=== PATIENT | female | born 1940 | race Caucasian/White ===

== ENCOUNTER 2020-11-15 22:49 | Inpatient (IN) | payer OTHER ==
[~2020-11-15] VITALS: Ht 154.9 cm; Wt 57.6 kg
[~2020-11-15 22:49] MED LIST: CIPRO500 MG PO; LEVOXYL88 MCG PO; MIDRIN CAPSULE1 CAP PO; NEURONTIN300 MG PO; NORFLEX30 MG/ML IJ; NORTUSS-D.E. S118 ML PO; PLAVIX75 MG; SIMVASTATIN20 MG PO; SYNTHROID100 MCG PO; TORADOL60 MG IM; ZITHROMAX600 MG PO
== END 2020-11-20 18:55 | disposition home or self-care (01) | DRG 390 ==
LOC: ER 22:49 → MEDJ 11-16 16:00
PROVIDERS: ADMIT Internal Medicine; ATTEND Internal Medicine
PROC: 0D9770Z Drainage of Stomach, Pylorus with Drainage Device, Via Natural or Artificial Opening (ICD-10-PCS; principal; 2020-11-16)
DX: K56.690 Other partial intestinal obstruction (principal); Z79.01 Long term (current) use of anticoagulants; Z86.73 Personal history of transient ischemic attack (TIA), and cerebral infarction without residual deficits; Z20.828 Contact with and (suspected) exposure to other viral communicable diseases

== ENCOUNTER → 2022-08-10 | Emergency (ER) | payer OTHER ==
[~2022-08-10] VITALS: Ht 121.9 cm; Wt 61.2 kg
[~2022-08-10] MED LIST changes: +ALENDRONATE SOD70 MG PO; +AMITRIPTYLINE H25 MG PO; +CETIRIZINE HCL10 MG PO; +FAMOTIDINE40 MG PO; +MEMANTINE HCL10 MG PO; +METHYLPREDNISOLO4 M1 PO; +MONTELUKAST SOD10 MG PO; +NORFLEX100MG PO
== END | disposition home or self-care (01) ==
LOC: ER 23:24
DX: R07.89 Other chest pain (principal); I10 Essential (primary) hypertension; Z20.822 Contact with and (suspected) exposure to COVID-19; Z88.8 Allergy status to other drugs, medicaments and biological substances

== ENCOUNTER 2023-12-19 21:30 | Emergency (ER) | payer OTHER ==
[~2023-12-19] VITALS: Ht 152.4 cm; Wt 59.0 kg
[2023-12-19 23:13] LABS: URINE APPEARANCE Clear; URINE BILIRRUBIN Negative (NEGATIVE); URINE BLOOD Trace; URINE COLOR Yellow; URINE GLUCOSE Negative (NEGATIVE); URINE LEUKOCYTE Moderate; URINE NITRATE Negative; URINE PROTEIN Negative (NEGATIVE); URINE UROBILINOGEN 0.2 E.U./dl
[2023-12-19 23:16] LABS: HEMATOCRIT 38.4 % (36.0-45.00); HEMOGLOBIN 13.1 g/dL (12.0-15.00); MEAN CELL VOLUME 91.1 fL (80.00-100.00); PLATELET COUNT 234 K/uL (150-450); RED BLOOD COUNT 4.22 M/uL (4.00-6.00); RED CELL DISTRIBUTION WIDTH 13.2 % (11.5-14.5)
[2023-12-19 23:17] LABS: URINE BACTERIA 118.4 uL (0.0-1933); URINE EPITHELIAL CELLS 2.4 uL (0.0-38.8); URINE RBC 18.5 uL (0.0-20.8); URINE WBC 905.1 uL (0.0-23.2)
[2023-12-19 23:44] LABS: ALBUMIN 3.3 gm/dL (3.4-5.0); BILIRUBIN TOTAL 0.44 mg/dL (0.3-1.2); CALCIUM 8.9 mg/dL (8.5-10.1); CREATININE SERUM 0.7 mg/dL (0.55-1.02); GFR 80.31; GLOBULINA 3.3 G/DL (2.4-3.5); POTASSIUM 3.52 mEq/L (3.5-5.1); TOTAL PROTEIN 6.6 gm/dL (6.4-8.2)
== END 2023-12-20 05:05 | disposition home or self-care (01) ==
LOC: ER 21:30
PROVIDERS: General Practice
DX: R10.9 Unspecified abdominal pain (principal); Z91.041 Radiographic dye allergy status; Z88.8 Allergy status to other drugs, medicaments and biological substances; R14.3 Flatulence; R14.2 Eructation; K57.30 Diverticulosis of large intestine without perforation or abscess without bleeding
CPT/HCPCS: 36415; 74176; 96365; 96366; 99284; J7030

== ENCOUNTER 2025-06-26 22:56 | Inpatient (IN) | payer OTHER ==
[~2025-06-26] VITALS: Ht 149.9 cm; Wt 56.7 kg
--- NOTE | 2025-06-26 23:07 | NUR ---
PACIENTE ALERTA Y ORIENTADA X 3. REFIERE DESDE LA 5:30 PM DOLOR ABDOMINALM E INFLAMACION.
[2025-06-26] MEDS ORDERED: NORVASC2.5 M1 PO (23:12)
[2025-06-27] MEDS ORDERED: PROMETHAZINE HCL 50 MG/ML AMPUL IM ONE (00:15)
[2025-06-27] MEDS ORDERED: FAMOTIDINE/PF 20 MG/2 ML VIAL IV PUSH STA (00:15)
[2025-06-27] MEDS ORDERED: 0.9 % SODIUM CHLORIDE 1,000 ML IV ONE (00:30)
--- NOTE | 2025-06-27 00:48 | NUR ---
SE REALIZA LAB Y SE ADMINISTRA TX AISHA ORDEN MEDICA BAJO MEDIDAS ASEPTICAS. SE ORIENTA PTE QUIEN REFIERE ENTENDER Y ACEPTAR.
--- NOTE | 2025-06-27 00:49 | NUR ---
SE REALIZA LAB Y SE ADMINISTRA TX AISHA ORDEN MEDICA BAJO MEDIDAS ASEPTICAS. SE ORIENTA PTE QUIEN REFIERE ENTENDER Y ACEPTAR
[2025-06-27 00:52] LABS: BASO % 0.4 % (0.1-1.2); EOS # 0.08 (0.04-0.54); EOS % 0.8 % (0.7-7.0); LYMPH # 1.70 (1.18-3.74); LYMPH % 17.4 % (19.3-53.1); MEAN PLATELET VOLUME 9.40 fl (9.4-12.4); MONO # 0.63 (0.24-0.82); MONO % 6.4 % (4.7-12.5); NEUT # 7.29 (1.56-6.13); NEUT % 74.7 % (34.0-71.1); RED CELL DISTRIBUTION WIDTH 12.7 % (11.6-14.4)
[2025-06-27 01:35] LABS: INR 1.0
[2025-06-27 01:54] LABS: URINE APPEARANCE Clear; URINE BILIRRUBIN Negative (NEGATIVE); URINE BLOOD Moderate; URINE COLOR Yellow; URINE GLUCOSE Negative (NEGATIVE); URINE LEUKOCYTE Moderate; URINE NITRATE Negative; URINE PROTEIN Negative (NEGATIVE); URINE UROBILINOGEN 0.2 E.U./dl
[2025-06-27 01:55] LABS: URINE BACTERIA 43.1 uL (0.0-1933); URINE EPITHELIAL CELLS 4.6 uL (0.0-38.8); URINE RBC 115.5 uL (0.0-20.8); URINE WBC 33.2 uL (0.0-23.2)
[2025-06-27 02:06] LABS: URINE CAST 0.00 uL (0.0-1.40); URINE KETONE 40 (NEGATIVE)
[2025-06-27 02:14] LABS: ALT/SGPT 24.0 U/L (12-78); AST/SGOT 20.0 U/L (15-37); BILIRUBIN TOTAL 0.57 mg/dL (0.3-1.2); BILIRUBIN,CONJUGATED 0.12 mg/dL (0.0-0.2); BUN CREA RATIO 27.0 (7.0-25.0); CREATININE SERUM 0.75 mg/dL (0.55-1.02); GFR 73.8; GLOBULINA 2.7 G/DL (2.4-3.5); GLUCOSE FASTING 90.0 mg/dL (65-100); OSMOLALITY SERUM 285.0 MOSM/KG (275-295)
--- NOTE | 2025-06-27 06:48 | NUR ---
SE INSERTA NASOGASTRICO EN ORIFICIO IZQ DE LA NARIZ. AL MOMENTO PTE SE ENCUENTRA ALERTA Y ORIENTADA X3. SE MANTIENE BAJO OBSERVACION POR CAMBIO.
--- NOTE | 2025-06-27 07:00 | NUR ---
SE RECIBE PTE DEL TURNO ANTERIOR ALERTA Y ORIENTADA X3, EN ANLGE CON BARANDAS ELEVADAS Y POSICION MAS BAJA POR PRECAUCION. CONSULTADA CON DR.RODRIGUEZ MARTINEZ Y POR PARTIAL SMALL BOWELL OBSTRUCTION. AL MOMENTO CON NGT TO LIS EN FOSA NASAL IZQ, [place] POR TURNO ANTERIOR, EL MISMO SE ENCUENTRA PATENTE Y FIJADO. SE GALO SV Y SE DOCUMENTAN.
[2025-06-27] MEDS ORDERED: HYOSCYAMINE SULFATE 0.125 MG TAB.SUBL SL STA (07:43)
[2025-06-27] MEDS ORDERED: METRONIDAZOLE/SODIUM CHLORIDE 500 MG/100 ML PIGGYBACK IV ONE (16:15)
[2025-06-27] MEDS ORDERED: KETOROLAC TROMETHAMINE 30 MG VIAL IV ONE (16:15)
[2025-06-27] MEDS ORDERED: CIPROFLOXACIN IN 5 % DEXTROSE 400 MG/200 ML PIGGYBAG IV ONE (16:15)
[2025-06-27] MEDS ORDERED: 0.9 % SODIUM CHLORIDE 1,000 ML IV SCH (17:45)
[2025-06-27] MEDS ORDERED: ONDANSETRON HCL 4 MG in 0.9 % SODIUM CHLORIDE 50 ML IV PRN (18:00)
[2025-06-27] MEDS ORDERED: ACETAMINOPHEN 500 MG GEL..CAP PO PRN (18:00)
[2025-06-27 18:34] VITALS: BP 120/71
[2025-06-27] MEDS ORDERED: CIPROFLOXACIN IN 5 % DEXTROSE 200 ML IV SCH (21:00)
[2025-06-27] MEDS ORDERED: FAMOTIDINE/PF 20 MG/2 ML VIAL IV SCH (21:00)
[2025-06-27] MEDS ORDERED: ENALAPRILAT DIHYDRATE 1.25 MG/ML VIAL IV PRN (21:00)
[2025-06-27] MEDS ORDERED: KETOROLAC TROMETHAMINE 30 MG VIAL IV PRN (21:00)
[2025-06-27 21:36] VITALS: BP 110/66; O2SAT 95
[2025-06-28 00:30] VITALS: BP 86/57; O2SAT 95
[2025-06-28 02:18] VITALS: BP 99/60
[2025-06-28] MEDS ORDERED: LEVOTHYROXINE SODIUM 88 MCG TABLET PO SCH (06:00)
[2025-06-28] MEDS ORDERED: ENOXAPARIN SODIUM 40 MG/0.4 ML SYRINGE SUBCUTANEO SCH (09:00)
[2025-06-28 09:19] VITALS: BP 119/63; O2SAT 96
[2025-06-28 16:35] VITALS: BP 97/55; O2SAT 97
[2025-06-28] MEDS ORDERED: METOCLOPRAMIDE HCL 5 MG/ML VIAL IV SCH (20:20)
[2025-06-29 02:17] VITALS: BP 91/53; O2SAT 95
[2025-06-29 07:30] VITALS: BP 105/66; O2SAT 98
[2025-06-29 07:59] LABS: ALT/SGPT 18.0 U/L (12-78); AST/SGOT 36.0 U/L (15-37); BILIRUBIN TOTAL 0.63 mg/dL (0.3-1.2); BUN CREA RATIO 32.0 (7.0-25.0); CREATININE SERUM 0.57 mg/dL (0.55-1.02); GFR 101.3; GLOBULINA 2.3 G/DL (2.4-3.5); GLUCOSE FASTING 60.0 mg/dL (65-100); OSMOLALITY SERUM 285.0 MOSM/KG (275-295)
[2025-06-29 08:16] LABS: BASO % 0.3 % (0.1-1.2); EOS # 0.05 (0.04-0.54); EOS % 0.7 % (0.7-7.0); LYMPH # 1.07 (1.18-3.74); LYMPH % 15.8 % (19.3-53.1); MEAN PLATELET VOLUME 10.40 fl (9.4-12.4); MONO # 0.55 (0.24-0.82); MONO % 8.1 % (4.7-12.5); NEUT # 5.07 (1.56-6.13); NEUT % 75.0 % (34.0-71.1); RED CELL DISTRIBUTION WIDTH 12.8 % (11.6-14.4)
[2025-06-29 17:25] VITALS: BP 106/44
[2025-06-30 00:35] VITALS: BP 109/64; O2SAT 98
[2025-06-30 07:30] VITALS: BP 106/51
== END 2025-06-30 10:37 | disposition home or self-care (01) | DRG 690 ==
LOC: ER 23:07 → MEDI 06-27 17:57
PROVIDERS: General Practice; Internal Medicine Infectious Disease; ADMIT Internal Medicine; ATTEND Internal Medicine
PROC: BW21YZZ Computerized Tomography (CT Scan) of Abdomen and Pelvis using Other Contrast (ICD-10-PCS; principal; 2025-06-27)
DX: N39.0 Urinary tract infection, site not specified (principal); R06.02 Shortness of breath